=== PATIENT | male | born 1945 | race Caucasian/White ===

== ENCOUNTER 2017-08-15 19:11 | Inpatient (IN) | payer MEDICARE, BC ==
[2017-08-15 19:58] LABS: ADD MAN DIFF? NO
[2017-08-15 20:00] LABS: BASO % 1 % (0-3); EOS # 0.2 x10^3/uL (0.0-0.7); EOS % 4 % (0-3); HEMATOCRIT 42.9 % (39.0-53.0); LYMPH % 29 % (24-48); MEAN CORPUSCULAR HEMOGLOBIN 32 pg (25-35); MEAN CORPUSCULAR HGB CONC 35 g/dL (31-37); MEAN CORPUSCULAR VOLUME 92 fL (79-100); MONO # 0.6 x10^3/uL (0.0-1.1); MONO % 9 % (0-9); NEUT % 58 % (31-73); PLATELET COUNT 157 x10^3/uL (140-400); RED BLOOD COUNT 4.68 x10^6/uL (4.30-5.70); RED CELL DISTRIBUTION WIDTH 13.7 % (11.5-14.5); WHITE BLOOD COUNT 6.9 x10^3/uL (4.0-11.0)
[2017-08-15 20:40] LABS: ANION GAP 10 (6-14); BLOOD UREA NITROGEN 10 mg/dL (8-26); BUN/CREATININE RATIO 13 (6-20); CALCIUM 8.9 mg/dL (8.5-10.1); CARBON DIOXIDE 28 mmol/L (21-32); CHLORIDE 104 mmol/L (98-107); CREATININE 0.8 mg/dL (0.7-1.3); GFR 95.3; GLUCOSE 103 mg/dL (70-99); POTASSIUM 3.7 mmol/L (3.5-5.1); SODIUM 142 mmol/L (136-145)
[2017-08-15 20:48] LABS: ALBUMIN 3.6 g/dL (3.4-5.0); ALBUMIN/GLOBULIN RATIO 1.2 (1.0-1.7); ALK PHOS 73 U/L (46-116); ALT (SGPT) 43 U/L (16-63); AST (SGOT) 35 U/L (15-37); PROTHROMBIN TIME PATIENT 12.8 SEC (11.7-14.0); TOTAL BILIRUBIN 0.4 mg/dL (0.2-1.0); TOTAL PROTEIN 6.5 g/dL (6.4-8.2)
[2017-08-15 20:49] LABS: PARTIAL THROMBOPLASTIN TIME 39 SEC (24-38)
[2017-08-15] MEDS: IOHEXOL 300 MG/ML 100ML VIAL. IV (20:54)
[2017-08-15] MEDS ORDERED: CONTRAST GIVEN MC (21:00)
[2017-08-15] MEDS ORDERED: ONDANSETRON PF 4 MG/2 ML VIAL. IV (22:45)
[2017-08-16] MEDS: IV NORMAL SALINE 1000ML BAG 1,000 ML IV ×2 (01:29→14:22)
[2017-08-16 05:50] LABS: ADD MAN DIFF? NO
[2017-08-16 05:58] LABS: BASO % 0 % (0-3); EOS # 0.1 x10^3/uL (0.0-0.7); EOS % 1 % (0-3); HEMOGLOBIN 12.6 g/dL (13.0-17.5); LYMPH # 1.2 x10^3/uL (1.0-4.8); LYMPH % 16 % (24-48); MEAN CORPUSCULAR HEMOGLOBIN 31 pg (25-35); MEAN CORPUSCULAR HGB CONC 34 g/dL (31-37); MEAN CORPUSCULAR VOLUME 93 fL (79-100); MONO # 0.6 x10^3/uL (0.0-1.1); MONO % 8 % (0-9); NEUT # 5.6 x10^3uL (1.8-7.7); NEUT % 75 % (31-73); PLATELET COUNT 130 x10^3/uL (140-400); RED CELL DISTRIBUTION WIDTH 13.9 % (11.5-14.5); WHITE BLOOD COUNT 7.5 x10^3/uL (4.0-11.0)
[2017-08-16] MEDS: SALIVA STIMULANT AGENT 44ML SPRAY BOTTLE. PO (09:27)
[2017-08-16] MEDS: ALLOPURINOL 300 MG TABLET. PO (09:41)
[2017-08-16] MEDS: PANTOPRAZOLE 40 MG TABLET.DR. PO (09:41)
[2017-08-16] MEDS: CETIRIZINE HCL 10 MG TABLET. PO (09:42)
[2017-08-16] MEDS: FAMOTIDINE 20 MG TABLET. PO (09:42)
[2017-08-16] MEDS: FINASTERIDE 5 MG TABLET. PO (09:42)
[2017-08-16] MEDS: CEFPODOXIME PROXETIL 100 MG TABLET. PO ×2 (10:09→21:12)
[2017-08-16 16:22] LABS: HEMATOCRIT 34.7 % (39.0-53.0); MEAN CORPUSCULAR HEMOGLOBIN 32 pg (25-35); MEAN CORPUSCULAR HGB CONC 35 g/dL (31-37); MEAN CORPUSCULAR VOLUME 93 fL (79-100); PLATELET COUNT 136 x10^3/uL (140-400); RED BLOOD COUNT 3.73 x10^6/uL (4.30-5.70); RED CELL DISTRIBUTION WIDTH 13.8 % (11.5-14.5); WHITE BLOOD COUNT 7.9 x10^3/uL (4.0-11.0)
[2017-08-17 04:35] LABS: ADD MAN DIFF? NO
[2017-08-17 04:40] LABS: BASO % 1 % (0-3); EOS # 0.2 x10^3/uL (0.0-0.7); EOS % 3 % (0-3); HEMATOCRIT 31.4 % (39.0-53.0); HEMOGLOBIN 10.9 g/dL (13.0-17.5); LYMPH # 1.3 x10^3/uL (1.0-4.8); LYMPH % 24 % (24-48); MEAN CORPUSCULAR HEMOGLOBIN 32 pg (25-35); MEAN CORPUSCULAR HGB CONC 35 g/dL (31-37); MEAN CORPUSCULAR VOLUME 93 fL (79-100); MONO # 0.6 x10^3/uL (0.0-1.1); MONO % 11 % (0-9); NEUT # 3.4 x10^3uL (1.8-7.7); NEUT % 61 % (31-73); PLATELET COUNT 117 x10^3/uL (140-400); RED BLOOD COUNT 3.37 x10^6/uL (4.30-5.70); RED CELL DISTRIBUTION WIDTH 14.1 % (11.5-14.5); WHITE BLOOD COUNT 5.5 x10^3/uL (4.0-11.0)
[2017-08-17 05:09] LABS: ANION GAP 7 (6-14); BLOOD UREA NITROGEN 13 mg/dL (8-26); CALCIUM 8.5 mg/dL (8.5-10.1); CARBON DIOXIDE 27 mmol/L (21-32); CHLORIDE 109 mmol/L (98-107); CREATININE 0.9 mg/dL (0.7-1.3); GFR 83.2; GLUCOSE 115 mg/dL (70-99); POTASSIUM 3.7 mmol/L (3.5-5.1); SODIUM 143 mmol/L (136-145)
[2017-08-17] MEDS: CETIRIZINE HCL 10 MG TABLET. PO (07:52)
[2017-08-17] MEDS: PANTOPRAZOLE 40 MG TABLET.DR. PO (07:52)
[2017-08-17] MEDS: CEFPODOXIME PROXETIL 100 MG TABLET. PO ×2 (07:52→20:29)
[2017-08-17] MEDS: FINASTERIDE 5 MG TABLET. PO (07:52)
[2017-08-17] MEDS: ALLOPURINOL 300 MG TABLET. PO (07:52)
[2017-08-17] MEDS: LACTOBACILLUS RHAMNOSUS GG 1 CAPSULE. PO ×2 (15:57→20:29)
[2017-08-18 05:11] LABS: HEMATOCRIT 30.7 % (39.0-53.0); HEMOGLOBIN 10.9 g/dL (13.0-17.5); MEAN CORPUSCULAR HGB CONC 36 g/dL (31-37)
[2017-08-18] MEDS: PANTOPRAZOLE 40 MG TABLET.DR. PO (07:34)
[2017-08-18] MEDS: CEFPODOXIME PROXETIL 100 MG TABLET. PO (08:54)
[2017-08-18] MEDS: FINASTERIDE 5 MG TABLET. PO (08:54)
[2017-08-18] MEDS: ALLOPURINOL 300 MG TABLET. PO (08:54)
[2017-08-18] MEDS: CETIRIZINE HCL 10 MG TABLET. PO (08:54)
[2017-08-18] MEDS: LACTOBACILLUS RHAMNOSUS GG 1 CAPSULE. PO (08:54)
== END 2017-08-18 10:55 | disposition home or self-care (01) | DRG 378 ==
LOC: 5 NORTH 23:00 → ER 19:11
DX: K57.31 Diverticulosis of large intestine without perforation or abscess with bleeding (principal); D62 Acute posthemorrhagic anemia; E66.9 Obesity, unspecified; G89.29 Other chronic pain; K21.9 Gastro-esophageal reflux disease without esophagitis; M10.9 Gout, unspecified; Z85.46 Personal history of malignant neoplasm of prostate; Z92.3 Personal history of irradiation; Z90.49 Acquired absence of other specified parts of digestive tract; Z86.010 Personal history of colon polyps; Z68.32 Body mass index [BMI] 32.0-32.9, adult; Z79.899 Other long term (current) drug therapy
CPT/HCPCS: 36415; 74174; 80048; 80053; 85014; 85018; 85025; 85027; 85610; 85730; 99285; 99285-25; J7030; Q9967

== ENCOUNTER → 2021-04-16 | Outpatient (CLI) | payer MEDICARE, BC ==
[2020-05-23 15:00] VITALS: BP 151/71
[~2021-04-16] MED LIST: ALLO100T PO; ALLO300T PO; CEFU500T46 PO; CONTRAST GIVEN. MC PRN; FESO4TAB PO; FEXO180T81 PO; FINA5TAB4 PO; IOHEXOL 240 MG/ML 50ML VIAL. PO ONE; METO-239 PO; OMEP40CA7 PO; PRED20TA PO; RANI-369 PO; RANI300T PO; TERA5CAP3 PO
--- NOTE | 2021-04-16 13:20 | RAD ---
EXAMINATION: CT pelvis without IV contrast INDICATION:75 years, Male, left groin pain. TECHNIQUE: Axial CT images of the pelvis without IV contrast. Coronal and sagittal reformatted perfor [facility]. COMPARISON: 08/15/2017.. Exposure: One or more of the following individualized dose reduction techniques were utilized for thi s examination: 1. Automated exposure control 2. Adjustment of the mA and/or kV according to patient size 3. Use of iterative reconstruction technique. FINDINGS: Left larger than right, small fat-containing inguinal hernias. No soft tissue masses, fluid collectio n or signs of inflammation in the left groin region. No enlarged inguinal lymph nodes. Small fat-cont aining umbilical hernia. No acute osseous process or suspicious lesion. Severe degenerative changes a t L5-S1. Partially imaged liver demonstrates steatosis. Stable ill-defined subcentimeter soft tissue nodule ex ophytic from the posterior cortex left kidney. Extensive sigmoid diverticulosis without diverticuliti s. Normal appendix. No bowel dilation. No pelvic lymphadenopathy by size criteria. No ascites or pneu moperitoneum. Normal caliber iliac arteries. Unremarkable urinary bladder and prostate. IMPRESSION: 1. Left larger than right, small fat-containing inguinal hernias. No soft tissue masses, fluid collec tion or signs of inflammation the left groin region. No enlarged inguinal lymph nodes. 2. Partially imaged liver demonstrates steatosis. 3. Extensive sigmoid diverticulosis without acute diverticulitis. Electronically signed by: Enrrique Lopez MD (04/16/2021 1:18 PM) [id number]
== END ==
LOC: CT 11:16
PROVIDERS: ATTEND Surgery
DX: K57.30 Diverticulosis of large intestine without perforation or abscess without bleeding (principal); K42.9 Umbilical hernia without obstruction or gangrene; K40.90 Unilateral inguinal hernia, without obstruction or gangrene, not specified as recurrent; K76.0 Fatty (change of) liver, not elsewhere classified; M79.89 Other specified soft tissue disorders
CPT/HCPCS: 72192